=== PATIENT | male | born 1985 | race Asian ===

== ENCOUNTER 2017-08-31 00:12 | Emergency (ER) | payer BC ==
[~2017-08-31] VITALS: Ht 177.8 cm; Wt 70.3 kg
[2017-08-31 00:20] VITALS: BP 118/67
== END 2017-08-31 02:35 | disposition home or self-care (01) ==
LOC: ER 00:21
DX: J06.9 Acute upper respiratory infection, unspecified (principal)
CPT/HCPCS: 71045-TC; A4606; Z7610